=== PATIENT | male | born 1960 | race Caucasian/White ===

== ENCOUNTER → 2017-09-17 12:42 | Outpatient (CLI) | payer MEDICAID ==
[2010-06-16 22:08] VITALS: BMI 25.8
== END | disposition home or self-care (01) ==
LOC: D.CT 12:42
DX: J38.2 Nodules of vocal cords (principal)

== ENCOUNTER 2018-03-31 11:17 | Emergency (ER) | payer MEDICAID ==
[~2018-03-31] VITALS: Ht 180.3 cm; Wt 84.5 kg
[2018-03-31 11:29] VITALS: Ht 180.3 cm; Wt 84.5 kg
[2018-03-31] MEDS ORDERED: NEXIUM40 MG PO (11:32)
[2018-03-31] MEDS ORDERED: TYLENOL W/CODEI1 TAB PO (13:12)
[2018-03-31 13:36] VITALS: BP 135/91
== END 2018-03-31 13:38 | disposition home or self-care (01) ==
LOC: D.ER 11:17
DX: S63.502A Unspecified sprain of left wrist, initial encounter (principal); X58.XXXA Exposure to other specified factors, initial encounter; Y93.89 Activity, other specified; Y92.019 Unspecified place in single-family (private) house as the place of occurrence of the external cause; K21.9 Gastro-esophageal reflux disease without esophagitis; F17.200 Nicotine dependence, unspecified, uncomplicated

== ENCOUNTER → 2019-04-21 10:11 | Outpatient (CLI) | payer OTHER ==
[2018-03-31 11:29] VITALS: BMI 26.0
[~2019-04-21 10:11] MED LIST: NEXIUM40 MG PO; TYLENOL W/CODEI1 TAB PO
== END | disposition home or self-care (01) ==
LOC: D.RAD 10:11
PROVIDERS: ATTEND Pediatrics
DX: M25.9 Joint disorder, unspecified (principal)